=== PATIENT | female | born 1995 | race Hispanic/Latino ===

== ENCOUNTER 2018-02-26 11:43 | Emergency (ER) | payer SELFPAY | END 2018-02-26 11:50 | disposition left against medical advice (07) | LOC: EME 11:43 | DX: J02.9 Acute pharyngitis, unspecified (principal); R11.10 Vomiting, unspecified; R10.9 Unspecified abdominal pain; Z53.21 Procedure and treatment not carried out due to patient leaving prior to being seen by health care provider ==